=== PATIENT | female | born 1945 | race Caucasian/White ===

== ENCOUNTER 2019-07-11 09:41 | Emergency (ER) | payer MEDICARE, MEDICAID, SELFPAY ==
[2019-07-11 09:44] VITALS: BP 104/72; PULSE 78; RESP 20; TEMP 36.5; O2SAT 95; BMI 34.0
--- NOTE | 2019-07-11 09:45 | XRR_ITS ---
PROCEDURE INFORMATION: Exam: XR Left Shoulder Exam date and time: 07/11/2019 9:46 AM Age: 73 years old Clinical indication: Injury or trauma; Fall; Initial encounter; Blunt trauma (contusions or hematomas; Shoulder; Left TECHNIQUE: Imaging protocol: XR Left shoulder. Views: AP internal and external rotation views, and a scapular Y view of the left shoulder. COMPARISON: No relevant prior studies available. FINDINGS: Bones/joints: Mild inferior marginal hypertrophy of the scapular glenoid. Moderate hypertrophic changes of the acromioclavicular joint. Soft tissues: Normal. XR/XR shoulder LT min 2V* [id number] IMPRESSION: 1. No acute bony injury identified. 2. Mild primary glenohumeral joint osteoarthritis. 3. Acromioclavicular arthrosis.
--- NOTE | 2019-07-11 09:50 | W.ED.EXTPRO ---
HPI - Extremity Problem General: Chief complaint: Fall Stated complaint: LEFT SHOULDER INJURY S/P MULT FALLS Time Seen by Provider: 07/11/19 09:44 Review of Systems General: Reports: 10 or more systems reviewed and unremarkable except in HPI and below Musc: Reports: extremity pain, joint pain and limited range of motion [facility] ED PFSH: Social History Smoking and tobacco status: former smoker Course Vital Signs: Vital signs: Vital Signs Temperature 97.7 F 07/11/19 09:44 Pulse Rate 78 07/11/19 09:44 Respiratory Rate 20 H 07/11/19 09:44 Blood Pressure 104/72 07/11/19 09:44 Pulse Oximetry 95 07/11/19 09:44 MDM - Extremity (Nontraumatic) Lab Data: Labs: Lab Results 07/11/19 07/11/19 07/11/19 Range/Units 10:42 10:42 10:42 WBC 8.3 (4.0-10.0) 10^3/ uL RBC 3.97 L (4.1-5.3) 10^6/u L Hgb 12.1 (11.5-15.3) g/dL Hct 36.5 L (37.0-47.0) % MCV 91.9 (81-99) fL MCH 30.5 (28.0-34.0) pg MCHC 33.2 (30.0-36.0) g/dL RDW 13.2 (12.1-15.1) % Plt Count 187 (130-400) 10^3/c mm MPV 10.7 H (7.4-10.4) fL Neut % (Auto) 79.1 % Lymph % (Auto) 8.2 % Otero % (Auto) 11.7 % Eos % (Auto) 0.1 % Baso % (Auto) 0.2 % Neut # (Auto) 6.5 (1.8-7.7) 10^3/u L Lymph # (Auto) 0.7 L (0.8-4.8) 10^3/u L Otero # (Auto) 1.0 H (0.2-0.9) 10^3/u L Eos # (Auto) 0.0 (0.0-0.8) 10^3/u L Baso # (Auto) 0.0 (0.0-0.1) 10^3/u L Nucleated RBC % (a uto) 0 % Nucleated RBCs # 0.0 /100WBC Sodium 133 L (136-145) mmol/L Potassium 3.8 (3.5-5.1) mmol/L Chloride 92 L (98-107) mmol/L Carbon Dioxide 28 (22-29) mmol/L Anion Gap 16.8 (5-19) BUN 24 H (8-23) mg/dL Creatinine 1.2 H (0.5-0.9) mg/dL Glucose 146 H (65-115) mg/dL Calculated Osmolal ity 275 L (285-295) mOsm/k g Lactate 0.8 (0.5-2.2) mmol/L Calcium 9.5 (8.5-10.5) mg/dL Total Bilirubin 0.5 (0.15-1.2) mg/dL AST 39 H (0-32) U/L ALT 35 H (0-33) U/L Alkaline Phosphata se 84 (35-105) IU/L Total Protein 6.8 (6.6-8.7) g/dL Albumin 3.2 L (3.5-5.2) g/dL Globulin 3.6 (1.3-4.6) g/dL Urine Color (Yellow) Urine Appearance (CLEAR) Urine pH (5-7) Ur Specific Gravit y (1.005-1.030) Urine Protein (Negative) Urine Glucose (UA) (Normal) Urine Ketones (Negative) Urine Blood (Negative) Urine Nitrate (Negative) Urine Bilirubin (NEGATIVE) Urine Urobilinogen (Negative) mg/dL Ur Leukocyte Farnaz ase (Negative) Urine RBC (0-2) /hpf Urine WBC (0-5) /hpf Ur Squamous Epith Cells (0-5) Urine Bacteria (NONE) 07/11/19 Range/Units 11:28 WBC (4.0-10.0) 10^3/ uL RBC (4.1-5.3) 10^6/u L Hgb (11.5-15.3) g/dL Hct (37.0-47.0) % MCV (81-99) fL MCH (28.0-34.0) pg MCHC (30.0-36.0) g/dL RDW (12.1-15.1) % Plt Count (130-400) 10^3/c mm MPV (7.4-10.4) fL Neut % (Auto) % Lymph % (Auto) % Otero % (Auto) % Eos % (Auto) % Baso % (Auto) % Neut # (Auto) (1.8-7.7) 10^3/u L Lymph # (Auto) (0.8-4.8) 10^3/u L Otero # (Auto) (0.2-0.9) 10^3/u L Eos # (Auto) (0.0-0.8) 10^3/u L Baso # (Auto) (0.0-0.1) 10^3/u L Nucleated RBC % (a uto) % Nucleated RBCs # /100WBC Sodium (136-145) mmol/L Potassium (3.5-5.1) mmol/L Chloride (98-107) mmol/L Carbon Dioxide (22-29) mmol/L Anion Gap (5-19) BUN (8-23) mg/dL Creatinine (0.5-0.9) mg/dL Glucose (65-115) mg/dL Calculated Osmolal ity (285-295) mOsm/k g Lactate (0.5-2.2) mmol/L Calcium (8.5-10.5) mg/dL Total Bilirubin (0.15-1.2) mg/dL AST (0-32) U/L ALT (0-33) U/L Alkaline Phosphata se (35-105) IU/L Total Protein (6.6-8.7) g/dL Albumin (3.5-5.2) g/dL Globulin (1.3-4.6) g/dL Urine Color Yellow (Yellow) Urine Appearance Clear (CLEAR) Urine pH 5 (5-7) Ur Specific Gravit y 1.010 (1.005-1.030) Urine Protein 1+ H (Negative) Urine Glucose (UA) Norm (Normal) Urine Ketones 1+ H (Negative) Urine Blood 2+ H (Negative) Urine Nitrate Negative (Negative) Urine Bilirubin 1+ H (NEGATIVE) Urine Urobilinogen 1 H (Negative) mg/dL Ur Leukocyte Farnaz ase Negative (Negative) Urine RBC 5-10 H (0-2) /hpf Urine WBC 15-25 H (0-5) /hpf Ur Squamous Epith Cells Rare (0-5) Urine Bacteria 3+ H (NONE) Discharge Plan Discharge Patient Disposition: Home, Self-Care Clinical Impression: Acute UTI Fall Qualifiers: Encounter type: initial encounter Qualified Code(s): W19.XXXA - Unspecified fall, initial encounter Acute shoulder pain Qualifiers: Laterality: left Qualified Code(s): M25.512 - Pain in left shoulder Condition: Stable Prescriptions: New Bactrim DS 800-160 mg tablet 1 tab PO BID 7 Days Qty: 14 RF: 0 No Action acetaminophen 325 mg Tablet 650 mg PO TID RF: 0 verapamil 40 mg Tablet 40 mg PO BID RF: 0 loperamide 2 mg Capsule 2 mg PO QID PRN (Reason: loose stools) RF: 0 triamcinolone acetonide 0.5 % Cream 1 applic TOPICAL BID RF: 0 cetirizine 10 mg Tablet 5 mg PO BID RF: 0 tizanidine 4 mg Tablet 4 mg PO Q8H PRN (Reason: Pain) RF: 0 Zofran 8 mg Tablet 8 mg PO Q8H PRN (Reason: Nausea) RF: 0 clobetasol 0.05 % Cream 1 applic TOPICAL BID PRN (Reason: Rash) RF: 0 omeprazole 40 mg Capsule,Delayed Release(Dr/Ec) 40 mg PO DAILY RF: 0 trazodone 100 mg Tablet 100 mg PO BEDTIME RF: 0 diphenhydramine HCl 25 mg Capsule 25 mg PO BEDTIME PRN (Reason: Sleep) RF: 0 nitrofurantoin macrocrystal 100 mg Capsule 100 mg PO BID RF: 0 aspirin 81 mg Tablet,Chewable 81 mg PO DAILY RF: 0 Vitamin D2 1,250 mcg (50,000 unit) Capsule 1,250 mcg PO Q7D RF: 0 Acetaminophen PM 25-500 mg Tablet 1 tab PO BEDTIME RF: 0 Lexapro 20 mg Tablet 20 mg PO DAILY RF: 0 Cetaphil Cream 1 applic TOPICAL BID PRN (Reason: skin symptoms) RF: 0 Trulicity 1.5 mg/0.5 mL Pen Injector 1.5 mg SUBCUT Q7D RF: 0 Referrals: Leilani Willson NP [Primary Care Provider] - Coding Level of Care Code ED Electronic Pagination System Operator for Briandag Isabela
--- NOTE | 2019-07-11 10:41 | PC.NURSE ---
Patient on bedpan for urine collection.
[2019-07-11 10:48] LABS: Basophils % 0.2 %; Eosinophils % 0.1 %; Hematocrit 36.5 % (37.0-47.0); Hemoglobin 12.1 g/dL (11.5-15.3); Lymphocytes # 0.7 10^3/uL (0.8-4.8); Lymphocytes % 8.2 %; Mean Corpuscular HGB Conc 33.2 g/dL (30.0-36.0); Mean Corpuscular Hemoglobin 30.5 pg (28.0-34.0); Mean Corpuscular Volume 91.9 fL (81-99); Mean Platelet Volume 10.7 fL (7.4-10.4); Monocytes % 11.7 %; Neutrophils # 6.5 10^3/uL (1.8-7.7); Neutrophils % 79.1 %; Nucleated Red Blood Cells % 0 %; Platelet Count 187 10^3/cmm (130-400); Red Blood Count 3.97 10^6/uL (4.1-5.3); Red Cell Distribution Width 13.2 % (12.1-15.1); White Blood Count 8.3 10^3/uL (4.0-10.0)
[2019-07-11 11:02] LABS: Lactate (Lactic Acid level) 0.8 mmol/L (0.5-2.2)
[2019-07-11 11:03] LABS: Alanine Aminotransferase 35 U/L (0-33); Albumin Level 3.2 g/dL (3.5-5.2); Alkaline Phosphatase 84 IU/L (35-105); Anion Gap 16.8 (5-19); Aspartate Amino Transferase 39 U/L (0-32); Blood Urea Nitrogen 24 mg/dL (8-23); Calcium 9.5 mg/dL (8.5-10.5); Carbon Dioxide 28 mmol/L (22-29); Chloride 92 mmol/L (98-107); Creatinine Clr Calc Pharmacy 52.8862; Globulin 3.6 g/dL (1.3-4.6); Glucose 146 mg/dL (65-115); Osmolality Calculated 275 mOsm/kg (285-295); Potassium 3.8 mmol/L (3.5-5.1); Sodium 133 mmol/L (136-145); Total Bilirubin 0.5 mg/dL (0.15-1.2); Total Protein 6.8 g/dL (6.6-8.7)
--- NOTE | 2019-07-11 11:31 | PC.NURSE ---
IN AND OUT CATH DONE DRYWALL CONTRACTOR USED PT GARY PROCEDURE WELL URINE SENT TO LAB CLEAR YELLOW URINE
[2019-07-11 12:02] LABS: Add Urine Microscopic? YES; Bilirubin Urine 1+ (NEGATIVE); Blood Urine 2+ (Negative); Glucose Urine UA Norm (Normal); Ketones Urine 1+ (Negative); Leukocyte Esterase Urine Negative (Negative); Nitrate Urine Negative (Negative); Protein Urine 1+ (Negative); Urine Appearance Clear (CLEAR); Urine Color Yellow (Yellow); Urobilinogen Urine 1 mg/dL (Negative); pH Urine 5 (5-7)
[2019-07-11 12:03] LABS: Add Urine Culture? Yes; Bacteria Urine 3+; Squamous Epithelial Cell Urine RARE (0-5); WBC Urine 15-25 /hpf (0-5)
[2019-07-11] MEDS: cefTRIAXone 1,000 MG in sodium chloride 0.9% (plus) 50 ML 100 MG IV (12:06)
[2019-07-11 12:24] VITALS: BP 138/75; PULSE 70; RESP 16; O2SAT 97
== END 2019-07-11 12:25 | disposition home or self-care (01) ==
PROVIDERS: Emergency Provider Family Medicine; PCP Nurse Practitioner Family
DX: M25.512 Pain in left shoulder (principal); N39.0 Urinary tract infection, site not specified; Z79.82 Long term (current) use of aspirin; Z87.891 Personal history of nicotine dependence
CPT/HCPCS: 12345; 36415; 51701; 73030; 80053; 81001; 83605; 85025; 87077; 87086; 87186; 96365; 99281; 99283; J0696

== ENCOUNTER → 2020-08-28 15:30 | Outpatient (BNVA) | payer MEDICARE, MEDICAID, SELFPAY | PROVIDERS: PCP Nurse Practitioner Family; Visit Provider Orthopaedic Surgery | DX: M25.551 Pain in right hip (principal); M16.11 Unilateral primary osteoarthritis, right hip | CPT/HCPCS: 73502 ==

== ENCOUNTER → 2020-12-05 13:51 | Outpatient (BNVA) | payer MEDICARE, MEDICAID, SELFPAY | PROVIDERS: PCP Nurse Practitioner Family; Visit Provider Orthopaedic Surgery | DX: Z01.812 Encounter for preprocedural laboratory examination (principal); M25.569 Pain in unspecified knee; M16.11 Unilateral primary osteoarthritis, right hip; Z20.822 Contact with and (suspected) exposure to COVID-19 | CPT/HCPCS: 87635 ==

== ENCOUNTER 2020-12-11 12:48 | Inpatient (IN) | payer MEDICARE, MEDICAID, SELFPAY ==
[2020-12-05 11:38] VITALS: BMI 34.2
--- NOTE | 2020-12-05 12:16 | P.ANESASSM_ITS ---
Pre-Anesthetic Assessment Pre-Anesthetic Assessment: Height/Weight: Height 1.8 m Weight 111.13 kg Proposed Procedure: Operation Date: 12/11/20 09:30 Proposed Procedures p right Total Hip Arthroplasty 95561 M16.11(Right) - Jose Roberto Lozoya MD Was Beta Ronel taken within 24 hours: N/A Was Clonidine taken within 24 hours: N/A Social: Social History: No alcohol and No tobacco Comment: previous smoker quit years ago Exam: Pre-Anes Outpt Exam: alert, oriented x 3, clear to auscultation bilaterally and regular rate & rhythm Airway: Submandibular: WNL Cervical ROM: WNL MP: 1 History/ROS: No significant complaints Pulmonary: Pulmonary: None reported CV/HEM: CV/HEM: None reported : : None reported Metabolic: Comments: obesity w BMI 34 Musc/skel: Musc/skel: None reported Neuropsych: Neuropsych: None reported Anesthetic Plan: ASA status: 3 Anesthesia: Anesthesia Evaluation and Gen eral Risk of > 500 ml blood loss (7ml/kg in children): No PFSH Anesthesia PFSH: Social History Smoking and tobacco status: former smoker Data Anesthesia Cardiac Studies: No Data to Display
[2020-12-11] VITALS (28 sets, daily range): BP systolic 131–192; BP diastolic 55–128; PULSE 68–115; RESP 13–25; TEMP 36.3–37.2; O2SAT 89–98
[2020-12-11 08:36] LABS: Glucose Point of Care 240 mg/dL (70-110)
[2020-12-11] MEDS: sodium chloride 0.9% 1,000 ML 30 ML IV (08:42)
--- NOTE | 2020-12-11 09:12 | ANES.PAUD2 ---
Pre-Anesthetic Update Pre-Anesthetic Assessment: Date of Surgery/Procedure: 12/11/20 Proposed Procedure: Operation Date: 12/11/20 09:30 Proposed Procedures p right Total Hip Arthroplasty 72273 M16.11(Right) - Jose Roberto Lozoya MD Any changes to Pre-Anesthetic Assessment?: No Last Intake: Intake Last Liquid Date 12/10/20 Last Liquid Time 20:25 Last Solid Date 12/10/20 Last Solid Time 17:00 Labs Last 48hrs: Laboratory Results - last 48 hr 12/11/20 08:27 POC Glucose 240 H Vitals: Pulse Rate 95 12/11/20 08:12 Pulse Rhythm 12/11/20 08:15 Pulse Strength 3+ Normal 12/11/20 08:15 Respiratory Rate 15 12/11/20 08:12 Blood Pressure 136/97 12/11/20 08:12 Blood Pressure Nisreen n 110 12/11/20 08:12 Pulse Oximetry 93 12/11/20 08:12 Oxygen Delivery Me thod 12/11/20 08:15 Exam: Pre-Anes Outpt Exam: alert, oriented x 3, clear to auscultation bilaterally and regular rate & rhythm Other Pertinent Information: Other Pertinent Information: SAB to GETA Cardiac Studies: No Data to Display
[2020-12-11] MEDS: HYDROmorphone 1 mg/mL INJ 1 mL 0.5 MG IVP ×2 (09:17→12:51)
--- NOTE | 2020-12-11 09:22 | W.PM.OPSUD ---
Surgery/Procedure H&P Update DATE OF PROCEDURE: December 11, 2020 DATE H&P PERFORMED: 12/05/20 H&P UPDATE INFORMATION: I have reviewed H&P completed within last 30 days and No changes to prior documentation PLANNED PROCEDURE: Operation Date: 12/11/20 09:30 Proposed Procedures p right Total Hip Arthroplasty 80637 M16.11(Right) - Jose Roberto Lozoya MD
[2020-12-11] MEDS: tranexamic acid 1,000 mg/10mL SDV 1000 MG IRRIGATION (10:43)
--- NOTE | 2020-12-11 12:22 | XR_ITS ---
WS: [id number] XR hip RT 1V wo/w pel [id number] REASON FOR EXAM: Status post right total hip arthroplasty FINDINGS: Total right hip arthroplasty. Components of the prosthesis are in proper position and alignment. Old healed fracture of the right superior pubic ramus. Soft tissue changes adjacent to the greater trochanter compatible with recent surgery. No acute bony abnormality. XR/XR hip RT 1V wo/w pel [id number] IMPRESSION: Total right hip arthroplasty as above.
--- NOTE | 2020-12-11 12:22 | P.OP_ITS ---
Operative Report Date of procedure: December 11, 2020 Pre-op Diagnosis: Osteoarthritis right hip Post-op diagnosis: same Post-op Findings: Same Procedure Done: Right total hip arthroplasty Implants: 1) [place] 58 mm ADM acetabular shell 2) Size 8 Jadiel 132.5 degree neck angle SecureFit Max stem 3} 28 mm standard femoral head 4} Restorationa ADM X3 insert Pathology: none sent Anesthesia: General Estimated blood loss (mL): 300 Complications: None Findings: Severe osteoarthritis right hip with eburnation of the acetabulum and femoral head and large peripheral osteophytes about the femoral head Condition: stable Disposition: PACU Procedure: The patient was taken to the operating room and anesthesia provided by the anesthesia service. The patient was placed in the lateral position on a beanbag. A timeout was performed. The patient was draped in the usual fashion. A 15 cm long incision was made beginning just proximal to the greater trochanter and extending posteriorly to a point just distal to the trochanter on the posterior border of the trochanter. Dissection was carried down with electrocautery through the subcutaneous fat to the fascia kristen which was divided proximally and distally with curved scissors. The anterior two thirds of the gluteus medius and minimus were elevated off the hip with electrocautery. The capsule was divided in a H-like fashion. The hip was dislocated and a neck cut made just above the level of the lesser trochanter. Exposure of the acetabulum was facilitated with the acetabular retractors. Remnants of labrum and peripheral osteophytes were removed with electrocautery and a rongeur. A reamer 2 mm under the size the femoral head was utilized to ream medially to the base of the palm and are. Reaming was then increased in 1 mm intervals until a healthy rim a trabecular bone was encountered. A trial ADM cup was placed and its position marked with electrocautery In the acetabulum. A final was press-fit into place. Attention was then focused on the femur. Sequential reaming was done under power until cortical chatter was encountered. Broaching was then accomplished until a stable broach size was obtained. A trial reduction with the head and neck provided excellent stability. The wound was irrigated with saline and antibiotic solution. The final Jadiel SecureFit Max stem was press-fit into place. The femoral head was placed and the hip was reduced. The hip was brought through range of motion and found to be free of impingement and stable. The anterior capsule was reapproximated with 1 Ethibond. The gluteus medius and minimus were repaired through bone with 5 Ethibond and reinforced with 1 Ethibond. The fascial kristen was closed with a running 0 Stratafix suture. Deep pelvic tissues were closed with 2-0 Stratafix and the skin with a running 4-0 l Stratafix.
[2020-12-11] MEDS: fentaNYL 50 mcg/mL INJ 2mL IVP (12:29)
[2020-12-11] MEDS: sodium chloride 0.9% 1,000 ML 100 ML IV ×2 (12:57→21:35)
--- NOTE | 2020-12-11 13:40 | XR_ITS ---
WS: [id number] Pelvis, AP portable view, 12/11/2020, 1355 hours Clinical Data: Total hip arthroplasty Comparison: AP right hip, today, 1223 hours Findings: The right hip arthroplasty is in good position. The old fracture of the superior right ischial pubic ramus is noted. The left hip is unremarkable. XR/XR pelvis 1-2V* [id number] Impression: Right hip arthroplasty.
[2020-12-11] MEDS: acetaminophen 500 mg Tablet 1000 MG PO ×2 (15:02→21:35)
[2020-12-11] MEDS: morphine 4 mg/mL SDV 1 mL 2 MG IVP ×4 (15:40→21:41)
--- NOTE | 2020-12-11 15:42 | ANE.PACU2 ---
Inpatient post-anesthesia follow up: Airway intact: Yes Vital signs: Temperature 97.4 F Pulse Rate 105 Respiratory Rate 16 Blood Pressure 146/55 Pulse Oximetry 93 Oxygen Delivery Me thod Nasal Cannula Oxygen Flow Rate 3 Fraction of Inspir ed Oxygen Hydration adequate: Yes Nausea and vomiting: No Pain level: 3 Mental status: Baseline
--- NOTE | 2020-12-11 16:24 | PC.PT ---
PT eval attempted. Patient not fully awake and having a lot of pain. Will attempt in a.m.
[2020-12-11 16:51] LABS: Glucose Point of Care 301 mg/dL (70-110)
[2020-12-11] MEDS: sennosides-docusate Tablet 2 TAB PO (18:01)
[2020-12-11] MEDS: CELEcoxib 200 mg Capsule PO (18:01)
[2020-12-11] MEDS: cetirizine 10 mg Tablet 5 MG PO (18:01)
[2020-12-11] MEDS: mupirocin oint 22 gm 1 APPLIC TOPICAL (18:02)
[2020-12-11] MEDS: oxyCODONE 5 mg IR Tab/Cap PO (19:37)
[2020-12-11 21:06] LABS: Glucose Point of Care 258 mg/dL (70-110)
[2020-12-11] MEDS: trazodone 100 mg Tablet PO (21:35)
[2020-12-12] VITALS (13 sets, daily range): BP systolic 107–155; BP diastolic 66–80; PULSE 79–101; RESP 16–20; TEMP 36.4–37.6; O2SAT 92–98
[2020-12-12 02:33] LABS: Hemoglobin 11.8 g/dL (11.5-15.3)
[2020-12-12] MEDS: morphine 4 mg/mL SDV 1 mL 2 MG IVP ×2 (04:29→09:21)
[2020-12-12] MEDS: oxyCODONE 5 mg IR Tab/Cap PO ×3 (04:30→23:13)
--- NOTE | 2020-12-12 04:36 | PC.NURSE ---
This RN entered room and pt had pulled out her IV and tangled in her blankets stating help me and I'm getting out of here. My ride will be here soon . Pt reorientated that she is in the hospital with a fresh surgical incision to her right hip. Pt stating well help me sit up and attempting to put legs over the side of the bed. BUILDING MAINTENANCE REPAIRER and this RN assisted pt to recliner. Pt then stated I need to go to the restroom . Transferred to [facility]. Ana Paula and skin care performed. Linens changed. Two assist back into bed with foot pumps on. New IV started to right hand #20. Pt tolerated well. Snack, fluids, and prn pain medication administered as ordered. Pt denies any other needs at this time but stating hopefully I get out of here soon. My food is waiting. .
[2020-12-12] MEDS: acetaminophen 500 mg Tablet 1000 MG PO (05:46)
[2020-12-12] MEDS: CELEcoxib 200 mg Capsule PO ×2 (05:46→17:19)
[2020-12-12 06:48] LABS: Glucose Point of Care 301 mg/dL (70-110)
[2020-12-12] MEDS: sodium chloride 0.9% 1,000 ML 100 ML IV (07:48)
[2020-12-12] MEDS: escitalopram 10 mg Tablet 20 MG PO (07:50)
[2020-12-12] MEDS: cetirizine 10 mg Tablet 5 MG PO ×2 (07:50→17:19)
[2020-12-12] MEDS: sennosides-docusate Tablet 2 TAB PO ×2 (07:50→17:19)
[2020-12-12] MEDS: pantoprazole DR 40 mg Tablet PO (07:50)
[2020-12-12] MEDS: atorvastatin 40 mg Tablet PO (07:51)
[2020-12-12] MEDS: aspirin 81 mg Chew Tablet PO (07:51)
[2020-12-12] MEDS: mupirocin oint 22 gm 1 APPLIC TOPICAL ×2 (07:52→17:23)
--- NOTE | 2020-12-12 10:10 | PC.CHAP ---
Pastoral Care Encounter/Spiritual Assessment Type of Contact [] Declined paper tube cutter visit [] Patient/Family/Request visit [] Outpatient visit [] Follow-up visit [] Physician referral [] Code/Alert [x] Routine visit [] Staff referral [] Actively dying [] Patient sleeping [] Family support [] [] Out of room [] Palliative care [] [] Receiving care in room [] Pre-surgical visit [] Trauma [] Long length of stay [] ICU visit [] Other: Relational/Emotional Strength [x] Patient feels connected with others/family/visitors/staff [] Distress [] Loneliness/isolation [] Abandonment Spirituality of Patient [x] Person of Elaine [] Attends Mandaeism of their Elaine [x] Believes in Prayer [] Reads Bible or Church materials [] There are Spiritual issues to be addressed Station Repairer Interventions [x] Prayer [x] Active listening [x] Non-anxious presence [x] Spiritual/emotional support [] Crisis/trauma care [] Spiritual counseling [] Bereavement support [] Provided bereavement packet [] Provided Bible/devotional materials [] Provided toy/stuffed animal, coloring book to patient or family member [] Provided Communion [] Anointing/Sandwich [] Salvation [x] Completed spiritual assessment [] Other: Impact on Illness or Injury [] Angry [] Fearful [] Anxious [] Often cries [] Exhaustion [] Unable to work [] Unable to attend mormonism [] Unable to walk/stand [] Unable to read [] Unable to drive [] Unable to eat/drink [] Unable to sleep [] Unable to be with family [] Patient intubated [] Other: Summary Pt's hip hurting her and she kept trying to find a comfortable position. 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 She has limited family contact in the area but does have support if needed. Time spent with patient 10 m
[2020-12-12 12:00] LABS: Glucose Point of Care 271 mg/dL (70-110)
[2020-12-12] MEDS: acetaminophen 325 mg Tablet 650 MG PO ×2 (13:52→21:54)
[2020-12-12 17:10] LABS: Glucose Point of Care 305 mg/dL (70-110)
[2020-12-12] MEDS: trazodone 100 mg Tablet PO (21:54)
[2020-12-12 22:07] LABS: Glucose Point of Care 234 mg/dL (70-110)
--- NOTE | 2020-12-12 22:49 | P.PN_ITS ---
Subjective Subjective: Interval history: Patient seen this morning at 0800. Pain control OK. Good po intake. Komal sutherland'raheel Vitals/I&O/Wt Last Vital Signs Temp 97.5 F L 12/12/20 20:00 Pulse 81 12/12/20 20:45 Resp 16 12/12/20 20:45 BP 107/70 12/12/20 20:00 Pulse Ox 98 12/12/20 20:45 12/12/20 12/12/20 12/12/20 06:59 14:59 22:59 Intake Total 540 / 2580 2009 240 / 2250 Output Total 250 / 550 600 / 600 Balance 290 / 2030 2009 -360 / 1650 Physical Exam Narrative: EXAM NARRATIVE: Right hip dressing clean and dry. Minimal swelling right thigh Data : 12/12/20 02:03 A&P Assessment and plan (1) Status post total hip replacement, right: Doing well surgically. Poor performance with therapy Status: Acute (2) Osteoarthritis of right hip: Status: Resolved Attestations Medical Necessity Statement*: Patien with poor gait with therapy. Needs SNF placement. OK to discharge when SNF bed available Coding Level of Care Code Acute Claim Inspector for [place] Diagnoses Status post total hip replacement, right Z96.641 Osteoarthritis of right hip M16.11
[2020-12-13] VITALS (9 sets, daily range): BP systolic 96–137; BP diastolic 62–82; PULSE 84–105; RESP 16–22; TEMP 36.4–37.1; O2SAT 90–96
[2020-12-13] MEDS: CELEcoxib 200 mg Capsule PO (05:33)
[2020-12-13 06:41] LABS: Glucose Point of Care 278 mg/dL (70-110)
[2020-12-13] MEDS: escitalopram 10 mg Tablet 20 MG PO (08:12)
[2020-12-13] MEDS: pantoprazole DR 40 mg Tablet PO (08:12)
[2020-12-13] MEDS: atorvastatin 40 mg Tablet PO (08:12)
[2020-12-13] MEDS: aspirin 81 mg Chew Tablet PO (08:12)
[2020-12-13] MEDS: sennosides-docusate Tablet 2 TAB PO ×2 (08:12→17:41)
[2020-12-13] MEDS: acetaminophen 325 mg Tablet 650 MG PO ×3 (08:12→21:51)
[2020-12-13] MEDS: mupirocin oint 22 gm 1 APPLIC TOPICAL ×2 (08:16→18:12)
[2020-12-13] MEDS: cetirizine 10 mg Tablet 5 MG PO ×2 (08:16→17:41)
--- NOTE | 2020-12-13 10:03 | PC.CHAP ---
Pastoral Care Encounter/Spiritual Assessment Type of Contact [] Declined broommaker visit [] Patient/Family/Request visit [] Outpatient visit [] Follow-up visit [] Physician referral [] Code/Alert [X] Routine visit [] Staff referral [] Actively dying [] Patient sleeping [] Family support [] [] Out of room [] Palliative care [] [] Receiving care in room [] Pre-surgical visit [] Trauma [] Long length of stay [] ICU visit [] Other: Relational/Emotional Strength [X] Patient feels connected with others/family/visitors/staff [] Distress [] Loneliness/isolation [] Abandonment Spirituality of Patient [X] Person of Elaine [X] Attends Holiness of their Elaine [X] Believes in Prayer [] Reads Bible or Orthodoxy materials [] There are Spiritual issues to be addressed Veneer Trimmer Interventions [X] Prayer [X] Active listening [X] Non-anxious presence [X]X Spiritual/emotional support [] Crisis/trauma care [] Spiritual counseling [] Bereavement support [] Provided bereavement packet [] Provided Bible/devotional materials [] Provided toy/stuffed animal, coloring book to patient or family member [] Provided Communion [] Anointing/[place] [] Salvation [X] Completed spiritual assessment [] Other: Impact on Illness or Injury [] Angry [] Fearful [] Anxious [] Often cries [] Exhaustion [] Unable to work [] Unable to attend faith [] Unable to walk/stand [] Unable to read [] Unable to drive [] Unable to eat/drink [] Unable to sleep [] Unable to be with family [] Patient intubated [] Other: Summary Time spent with patient 15 MIN
[2020-12-13 11:46] LABS: Glucose Point of Care 284 mg/dL (70-110)
[2020-12-13] MEDS: oxyCODONE 5 mg IR Tab/Cap PO ×2 (14:10→21:51)
[2020-12-13 17:37] LABS: Glucose Point of Care 281 mg/dL (70-110)
--- NOTE | 2020-12-13 18:02 | PM.PN ---
Subjective Subjective: Interval history: Wants to go home. No complaints of pain, Good po intake Vitals/I&O/Wt Last Vital Signs Temp 98.3 F 12/13/20 16:00 Pulse 102 H 12/13/20 16:00 Resp 18 12/13/20 16:00 BP 137/82 12/13/20 16:00 Pulse Ox 90 12/13/20 16:00 12/13/20 12/13/20 12/13/20 06:59 14:59 22:59 Intake Total 480 / 480 Output Total 300 / 900 250 / 250 Balance -300 / 1350 480 / 480 -250 / 230 Physical Exam Narrative: EXAM NARRATIVE: Slight staining right hip dressing. Minimal swelling right thigh Data : 12/12/20 02:03 A&P Assessment and plan (1) Osteoarthritis of right hip: Status: Resolved (2) Status post total hip replacement, right: Concerns raised by therapy about patient's safety with walker. Probably will need SNF. No acute issues. Status: Acute Attestations Medical Necessity Statement*: Awaiting SNF placement Coding Level of Care Code Acute Mold Unloader for [place] Diagnoses Osteoarthritis of right hip M16.11 Status post total hip replacement, right Z96.641
[2020-12-13 20:54] LABS: Glucose Point of Care 249 mg/dL (70-110)
[2020-12-13] MEDS: trazodone 100 mg Tablet PO (21:51)
[2020-12-14] VITALS (7 sets, daily range): BP systolic 140–154; BP diastolic 71–81; PULSE 75–90; RESP 16–20; TEMP 36.7–37; O2SAT 90–98
[2020-12-14] MEDS: CELEcoxib 100 mg Capsule 200 MG PO ×2 (06:20→17:38)
[2020-12-14 07:23] LABS: Glucose Point of Care 222 mg/dL (70-110)
[2020-12-14] MEDS: aspirin 81 mg Chew Tablet PO (08:20)
[2020-12-14] MEDS: escitalopram 10 mg Tablet 20 MG PO (08:20)
[2020-12-14] MEDS: pantoprazole DR 40 mg Tablet PO (08:20)
[2020-12-14] MEDS: atorvastatin 40 mg Tablet PO (08:20)
[2020-12-14] MEDS: cetirizine 10 mg Tablet 5 MG PO ×2 (08:20→17:38)
[2020-12-14] MEDS: sennosides-docusate Tablet 2 TAB PO ×2 (08:20→17:38)
[2020-12-14] MEDS: acetaminophen 325 mg Tablet 650 MG PO ×3 (08:20→20:01)
[2020-12-14] MEDS: mupirocin oint 22 gm 1 APPLIC TOPICAL ×2 (08:22→17:40)
[2020-12-14 11:26] LABS: Glucose Point of Care 256 mg/dL (70-110)
[2020-12-14] MEDS: oxyCODONE 5 mg IR Tab/Cap PO ×2 (14:31→21:59)
[2020-12-14 17:11] LABS: Glucose Point of Care 259 mg/dL (70-110)
[2020-12-14] MEDS: insulin lispro 100 unit/1 mL SUBCUT ×2 (17:37→21:59)
[2020-12-14] MEDS: trazodone 100 mg Tablet PO (20:01)
[2020-12-14 20:33] LABS: Glucose Point of Care 212 mg/dL (70-110)
[2020-12-14] MEDS: tizanidine 4 mg Tablet PO (21:59)
[2020-12-15] VITALS: BP 137/65; PULSE 78; RESP 18; TEMP 36.5; O2SAT 94
[2020-12-15 04:00] VITALS: BP 111/69; PULSE 101; RESP 19; TEMP 36.9; O2SAT 97
[2020-12-15] MEDS: CELEcoxib 100 mg Capsule 200 MG PO (05:24)
[2020-12-15 06:33] LABS: Glucose Point of Care 246 mg/dL (70-110)
[2020-12-15 08:00] VITALS: BP 135/71; PULSE 79; RESP 18; TEMP 36.6; O2SAT 91
[2020-12-15 08:20] LABS: Glucose Point of Care 238 mg/dL (70-110)
[2020-12-15] MEDS: acetaminophen 325 mg Tablet 650 MG PO (09:39)
[2020-12-15] MEDS: aspirin 81 mg Chew Tablet PO (09:40)
[2020-12-15] MEDS: insulin lispro 100 unit/1 mL SUBCUT (09:40)
[2020-12-15] MEDS: sennosides-docusate Tablet 2 TAB PO (09:40)
[2020-12-15] MEDS: pantoprazole DR 40 mg Tablet PO (09:40)
[2020-12-15] MEDS: atorvastatin 40 mg Tablet PO (09:40)
[2020-12-15] MEDS: cetirizine 10 mg Tablet 5 MG PO (09:40)
[2020-12-15] MEDS: escitalopram 10 mg Tablet 20 MG PO (09:40)
[2020-12-15] MEDS: mupirocin oint 22 gm 1 APPLIC TOPICAL (09:44)
--- NOTE | 2020-12-15 10:36 | PC.OT ---
OT TREATMENT HELD TODAY DUE TO PATIENT SCHEDULED FOR DISCHARGE
--- NOTE | 2020-12-15 10:40 | PC.SOCIAL ---
Pg 2 IMM Explained to pt Pg 2 IMM. No questions voiced. Provided pt a copy. Initialed, dated, & timed a copy & placed in chart.
[2020-12-15 11:10] VITALS: BP 136/78; PULSE 91; RESP 18; TEMP 36.6; O2SAT 91
[2020-12-15 14:41] VITALS: BP 136/78; PULSE 91; RESP 18; TEMP 36.6; O2SAT 91
--- NOTE | 2020-12-15 19:39 | P.MISC_ITS ---
Miscellaneous Note Purpose of Documentation: Discharge documentation Note: Per Dr. Lozoya, the patient was evaluated for correction. She was accepted to [facility] and discharged there today.
--- NOTE | 2020-12-15 19:39 | PM.MISC ---
Miscellaneous Note Purpose of Documentation: Discharge documentation Note: Per Dr. Lozoya, the patient was evaluated for alf. She was accepted to [facility] and discharged there today.
--- NOTE | 2020-12-20 11:20 | PC.SOCIAL ---
discharge follow up call made, spoke with Haven, patients nurse at [facility]. she reports pt is doing well, using walker for ambulation and working with PT. patient still has some confusion. patient is taking oxycodone as prescribed with pain relief. discussed with nurse pts follow up appointment with dr. flanagan, she will pass this onto medical social worker. no questions or concerns voiced.
--- NOTE | 2020-12-24 19:42 | PM.DCS ---
Discharge Providers Date of Admission: 12/12/20 20:25 Date of Discharge: December 15, 2020 Attending Provider at Admission: Jose Roberto Lozoya MD Attending Provider at Discharge: Jose Roberto Lozoya MD Primary Care Provider: SANTOS Jasso Diagnoses at Discharge Discharge Diagnosis (1) Osteoarthritis of right hip: Status: Resolved (2) Status post total hip replacement, right: Status: Acute (3) Diabetes: Status: Acute (4) Dementia: Status: Acute Reason for Visit Reason for Visit: right total hip arthroplasty Hospital Course Hospital Course The patient tolerated surgery well. They remained hemodynamically stable. They was begun on aspirin and sequential compression dressing for DVT prophylaxis. The patient was mobilized with therapy beginning the day of surgery due to his dementia had difficulty with regaining ambulatory status. Decision was made to proceed with long-term transfer. Hospitalization was extended as we waited for a bed to become available Physical Exam Narrative: EXAM NARRATIVE: On the day of discharge the hip incision was clean. The incision was free of drainage. They had no particular swelling about the thigh or distal. No distal neurovascular deficits were noted. Discharge Data Data Completed and Pending: Completed Studies During Hospitalization Category Date Time Status XR hip RT 1V wo/[place] [id number] Routine Exams 12/11/20 12:22 Completed XR pelvis 1-2V* 7 2170 Routine Exams 12/11/20 13:40 Completed Vitals: Last Vital Signs Temp 97.9 F 12/15/20 14:41 Pulse 91 12/15/20 14:41 Resp 18 12/15/20 14:41 BP 136/78 12/15/20 14:41 Pulse Ox 91 12/15/20 14:41 Discharge Plan Discharge Patient Disposition: Xfer SNF Condition: Stable Prescriptions: New celecoxib 200 mg Capsule 200 mg PO Q12H 14 Days Qty: 28 RF: 0 Continued mupirocin 2 % ointment 1 applic topical BID Qty: 15 RF: 0 acetaminophen 325 mg Tablet 650 mg PO TID RF: 0 verapamil 40 mg Tablet 40 mg PO BID RF: 0 loperamide 2 mg Capsule 2 mg PO QID PRN (Reason: loose stools) RF: 0 triamcinolone acetonide 0.5 % Cream 1 applic TOPICAL BID RF: 0 cetirizine 10 mg Tablet 5 mg PO BID RF: 0 tizanidine 4 mg Tablet 4 mg PO Q8H PRN (Reason: Pain) RF: 0 ondansetron HCl [Zofran] 8 mg Tablet 8 mg PO Q8H PRN (Reason: Nausea) RF: 0 clobetasol 0.05 % Cream 1 applic TOPICAL BID PRN (Reason: Rash) RF: 0 omeprazole 40 mg Capsule,Delayed Release(Dr/Ec) 40 mg PO DAILY RF: 0 trazodone 100 mg Tablet 100 mg PO BEDTIME RF: 0 aspirin 81 mg Tablet,Chewable 81 mg PO DAILY RF: 0 escitalopram oxalate [Lexapro] 20 mg Tablet 20 mg PO DAILY RF: 0 Cetaphil Cream 1 applic TOPICAL BID PRN (Reason: skin symptoms) RF: 0 Trulicity 1.5 mg/0.5 mL Pen Injector 1.5 mg SUBCUT Q7D RF: 0 atorvastatin 40 mg tablet 40 mg PO DAILY RF: 0 nitroglycerin 0.4 mg Tablet, Sublingual 0.4 mg SUBLINGUAL Q5M PRN (Reason: Chest Pain) RF: 0 Vitamin D2 1,250 mcg (50,000 unit) Capsule 1,250 mcg PO DAILY RF: 0 diclofenac sodium 1 % gel 1 ea TOPICAL PRN RF: 0 Discharge Orders: Discharge Order (Routine); Ordered 12/15/20 Ordered By: Belkis Kingston Referrals: [facility] [Outside] Jose Roberto Lozoya MD [Physician] - 01/16/21 9:45 am Discharge Diet: Advance as tolerated Discharge Activity: Limit activity as instructed Patient Instructions: Opioid Safety Activity Restrictions/Additional Instructions: Okay to shower. No soaking incision in tub ApplyIce up to 20 min/hr for pain and swelling Take Celebrex twice a day for the next 15 days for pain , discontinue other anti-inflammatories Take Tylenol for mild pain Take oxycodone for breakthrough pain. Exercises per physical therapy. May weight-bear as tolerated on total hip arthroplasty Discharge Attestations Time Spent in Discharge Care*: other Quality Metrics Clinical Quality Measures During this hospital stay, did patient experience: None Coding Level of Care Code Acute g [facility] note Diagnoses Osteoarthritis of right hip M16.11 Status post total hip replacement, right Z96.641 Diabetes E11.9 Dementia F03.90
== END 2020-12-15 14:42 | disposition skilled nursing facility (03) | DRG 470 ==
LOC: MEDSURG 12:48
PROVIDERS: Admitting Provider Orthopaedic Surgery; PCP Nurse Practitioner Family; Visit Provider Orthopaedic Surgery
PROC: 0SR90JA Replacement of Right Hip Joint with Synthetic Substitute, Uncemented, Open Approach (ICD-10-PCS; CPT 27130; principal; 2020-12-11 09:10)
DX: M16.11 Unilateral primary osteoarthritis, right hip (principal); Z87.891 Personal history of nicotine dependence; E11.9 Type 2 diabetes mellitus without complications; F03.90 Unspecified dementia, unspecified severity, without behavioral disturbance, psychotic disturbance, mood disturbance, and anxiety; Z79.82 Long term (current) use of aspirin; Z79.4 Long term (current) use of insulin
CPT/HCPCS: 36415; 36416; 72170; 73501; 82962; 85018; 96372; 96374; 97161; 97167; 97530; 97535; C1776; G0378; J0360; J0690; J1100; J1170; J1580; J1815; J2270; J2405; J2704; J3010; J3490; J7030

== ENCOUNTER → 2021-02-12 11:09 | Outpatient (BNVA) | payer MEDICARE, MEDICAID, SELFPAY | PROVIDERS: PCP Nurse Practitioner Family; Visit Provider Orthopaedic Surgery | DX: Z96.641 Presence of right artificial hip joint (principal) | CPT/HCPCS: 73502 ==

== ENCOUNTER → 2021-03-16 00:01 | Outpatient (BNVA) | payer MEDICARE, MEDICAID, SELFPAY | PROVIDERS: PCP Nurse Practitioner Family; Visit Provider Orthopaedic Surgery | DX: Z01.812 Encounter for preprocedural laboratory examination (principal); Z20.822 Contact with and (suspected) exposure to COVID-19 | CPT/HCPCS: 87635 ==

== ENCOUNTER 2021-03-19 14:13 | Inpatient (IN) | payer MEDICARE, MEDICAID, SELFPAY ==
[2021-03-16 16:53] VITALS: BMI 31.6
[2021-03-19] VITALS (20 sets, daily range): BP systolic 103–169; BP diastolic 56–99; PULSE 68–97; RESP 16–20; TEMP 36.2–37.3; O2SAT 94–99
[2021-03-19 11:52] LABS: Glucose Point of Care 142 mg/dL (70-110)
--- NOTE | 2021-03-19 11:59 | P.ANESASSM_ITS ---
Pre-Anesthetic Assessment Pre-Anesthetic Assessment: Height/Weight: Height 1.75 m Weight 97.069 kg Temp Pulse Resp BP Pulse Ox 99.1 F 97 18 138/79 95 03/19/21 11:56 03/19/21 11:56 03/19/21 11:56 03/19/21 11:56 03/19/21 11:56 Preop Diagnosis: Osteoarthritis right hip Proposed Procedure: Operation Date: 03/19/21 12:30 Proposed Procedures p Hip Arthroplasty Revision [id number](Right) - Jose Roberto Lozoya MD Familial anesthetic complications: none Was Beta Ronel taken within 24 hours: N/A Was Clonidine taken within 24 hours: N/A Last intake: Intake Last Liquid Date 03/18/21 Last Liquid Time 17:00 Last Solid Date 03/18/21 Last Solid Time 17:00 Social: Social History: No alcohol and No tobacco Comment: former smoker Exam: Pre-Anes Outpt Exam: alert, oriented x 3, clear to auscultation bilaterally and regular rate & rhythm Airway: Cervical ROM: WNL MP: 2 Dentition: Full GI: GI: GERD Metabolic: Metabolic: DM and Hyperlipidemia Anesthetic Plan: ASA status: 3 Anesthesia: General Risk of > 500 ml bloo d loss (7ml/kg in children): No PFSH Anesthesia PFSH: Medical History Dementia Diabetes Social History Smoking and tobacco status: former smoker Data Anesthesia Other Labs: Laboratory Results - last 48 hr 03/19/21 11:50 POC Glucose 142 H Cardiac Studies: No Data to Display
[2021-03-19] MEDS: sodium chloride 0.9% 1,000 ML 30 ML IV (12:12)
--- NOTE | 2021-03-19 12:19 | P.HP_ITS ---
Same Day Surgery H&P Indication for Procedure/HPI DATE OF PROCEDURE: March 19, 2021 CHIEF COMPLAINT/INDICATIONFOR SURGICAL PROCEDURE: Loose right femoral component, here for revision right femur PREOP DIAGNOSIS: Loose right femoral component PLANNED PROCEDRUE: Operation Date: 03/19/21 12:30 Proposed Procedures p Hip Arthroplasty Revision [id number](Right) - Jose Roberto Lozoya MD Medications/Allergies* Home Medications Medication Instructions Recorded Confirmed Type Trulicity 1.5 mg SUBCUT Q7D 07/11/19 03/19/21 History acetaminophen 650 mg PO TID 07/11/19 03/19/21 History aspirin 81 mg PO DAILY 07/11/19 03/19/21 History cetirizine 5 mg PO BID 07/11/19 03/19/21 History escitalopram oxalate [Lexapro] 20 mg PO DAILY 07/11/19 03/19/21 History loperamide 2 mg PO QID PRN 07/11/19 03/19/21 History omeprazole 40 mg PO DAILY 07/11/19 03/19/21 History ondansetron HCl [Zofran] 8 mg PO Q8H PRN 07/11/19 03/16/21 History tizanidine 4 mg PO Q8H PRN 07/11/19 03/19/21 History trazodone 100 mg PO BEDTIME 07/11/19 03/19/21 History triamcinolone acetonide 1 applic TOPICAL BID 07/11/19 03/19/21 History verapamil 40 mg PO BID 07/11/19 03/19/21 History atorvastatin 40 mg PO DAILY 12/05/20 03/19/21 History ergocalciferol (vitamin D2) 1,250 mcg PO DAILY 12/05/20 03/19/21 History [Vitamin D2] nitroglycerin 0.4 mg SUBLINGUAL Q5M PRN 12/05/20 03/19/21 History oxycodone 5 mg PO BID 03/16/21 03/19/21 History Allergies/Adverse Reactions Allergy/AdvReac Type Severity Reaction Status Date / Time gabapentin Allergy Unknown Verified 03/16/21 16:44 ibuprofen Allergy Unknown Verified 03/16/21 16:44 Current Medications: Generic Name Dose Route Start Last Admin Trade Name Freq PRN Reason Stop Dose Admin Sodium Chloride 1,000 mls @ 30 mls/hr 03/19/21 12:00 03/19/21 12:12 Sodium Chloride 0.9% IV 03/20/21 11:59 30 mls/hr .Q24H BAIRON Administration Pertinent History/Comorbid Conditions* Medical History (Updated 12/25/20 @ 07:35 by Jose Roberto Lozoya MD) Dementia Diabetes Social History Smoking and tobacco status: former smoker Pertinent Exam Findings alert, oriented x 3, clear to auscultation bilaterally, regular rate & rhythm and operative site marked Recommendations Surgery/Procedure today Coding Level of Care Code Acute [employer] for [employer]
--- NOTE | 2021-03-19 13:43 | XR_ITS ---
WS: [id number] XR hip RT 1V wo/w pel [id number] REASON FOR EXAM: sURGICAL PROCEDURE FINDINGS: The femoral component of the previous right hip arthroplasty has been replaced. This portion of the p rosthesis is in proper position and alignment and articulating with the acetabular portion of the tot al right hip arthroplasty. XR/XR hip RT 1V wo/w pel [id number] IMPRESSION: Replacement of femoral component of previous total right hip arthroplasty.
[2021-03-19 14:11] LABS: Basophils % 0.5 %; Eosinophils # 0.1 10^3/uL (0.0-0.8); Eosinophils % 0.8 %; Hematocrit 38.3 % (37.0-47.0); Hemoglobin 12.4 g/dL (11.5-15.3); Lymphocytes # 1.2 10^3/uL (0.8-4.8); Lymphocytes % 16.5 %; Mean Corpuscular HGB Conc 32.4 g/dL (30.0-36.0); Mean Corpuscular Hemoglobin 29.1 pg (28.0-34.0); Mean Corpuscular Volume 89.9 fl (81-99); Mean Platelet Volume 10.8 fL (7.4-10.4); Monocytes # 0.5 10^3/uL (0.2-0.9); Monocytes % 6.2 %; Neutrophils # 5.56 10^3/uL (1.8-7.7); Neutrophils % 75.5 %; Nucleated Red Blood Cells % 0 %; Platelet Count 214 10^3/cmm (130-400); Red Blood Count 4.26 10^6/uL (4.1-5.3); Red Cell Distribution Width 14.3 % (12.1-15.1); White Blood Count 7.4 10^3/uL (4.0-10.0)
--- NOTE | 2021-03-19 15:19 | XR_ITS ---
WS: [id number] XR hip RT 1V wo/w pel [id number] REASON FOR EXAM: right total hip FINDINGS: Total right hip arthroplasty. (Previous total right hip prosthesis removed and replaced.) Prosthetic complements appear in proper position and alignment. No bony abnormality. XR/XR hip RT 1V wo/w pel [id number] IMPRESSION: Total right hip arthroplasty
--- NOTE | 2021-03-19 15:21 | PM.OP ---
Operative Report Date of procedure: March 19, 2021 Pre-op Diagnosis: Loose right femoral component Post-op diagnosis: same Post-op Findings: Same Procedure Done: Revision right femoral component Pathology: none sent Surgeon: Jose Roberto Lozoya Anesthesia: General Estimated blood loss (mL): 200 Complications: None Findings: The patient had a the patient had a loose right femoral stem. His acetabular component was stable and satisfactory position Condition: stable Disposition: PACU Brief History: The patient is a 69 the patient is a 75-year-old female with right hip pain after a total hip arthroplasty and femoral stem subsidence consistent with loosening. The patient was taken to the operating room for revision of the femoral stem to obtain a pain-free functional help Procedure: The patient was taken to the operative the patient was taken to the operating room and given a general anesthesia. She is prepped and draped in the lateral position with the right hip exposed. She was given 2 g of Ancef. A timeout was performed. Additional lateral incision was made over the lateral scar dissection carried down to the fascial kristen. The fascia kristen was divided in line with the sutures proximally and distally with electrocautery.the anterior two thirds of gluteus medius and anterior capsule was elevated off the greater trochanter. Scarred anterior capsule was excised. The hip could then be dislocated and the femoral head was removed with a [place]. The femoral stem was identified loose in the canal. Utilizing a rongeur and curettes fibrous tissue was removed from the shoulder of the stem and the stem completely removed. Sequential reaming was accomplished distally up to a size 10 and broaching to a size 10. The size 10 broach provided excellent proximal fill but concerns were still raised about the axial stability of the stem. Decision was made to cement. The canal was cleaned with curettage brushing and pulsatile lavage down to healthy trabecular bone. A distal cement restrictor was placed. The size 8 Jadiel Omnifit Lance stem was cemented into place. A trial reduction with a -3 mm head provided excellent stability. The final -3 mm head neck and in ADM insert were placed and the hip was reduced. The hip was brought through range of motion and found to be free of impingement and stable. The anterior capsule was reapproximated with 1 Ethibond. The gluteus medius and minimus were repaired through bone with 5 Ethibond and reinforced with 1 Ethibond. The fascial kristen was closed with a running 0 Stratafix suture. Deep pelvic tissues were closed with 2-0 Stratafix and the skin with a running 4-0 l Stratafix. 1) [place] Omnifit Lance size 8 femoral stem 2) 28 mm -3 femoral head 4} ADM liner
[2021-03-19] MEDS: fentaNYL 50 mcg/mL INJ 2mL IVP (15:26)
[2021-03-19 16:29] LABS: Glucose Point of Care 210 mg/dL (70-110)
[2021-03-19] MEDS: oxyCODONE 5 mg IR Tab/Cap PO ×2 (17:16→23:22)
[2021-03-19] MEDS: cetirizine 10 mg Tablet 5 MG PO (17:16)
[2021-03-19] MEDS: CELEcoxib 200 mg Capsule PO (17:16)
[2021-03-19] MEDS: sodium chloride 0.9% 1,000 ML 100 ML IV (17:19)
[2021-03-19] MEDS: insulin lispro 100 unit/1 mL SUBCUT ×2 (18:25→21:06)
[2021-03-19] MEDS: tizanidine 4 mg Tablet PO (20:07)
[2021-03-19] MEDS: acetaminophen 325 mg Tablet 650 MG PO (20:07)
[2021-03-19 21:05] LABS: Glucose Point of Care 180 mg/dL (70-110)
[2021-03-19 21:05] LABS: Glucose Point of Care 227 mg/dL (70-110)
[2021-03-19] MEDS: trazodone 100 mg Tablet PO (21:13)
[2021-03-20] VITALS (7 sets, daily range): BP systolic 104–134; BP diastolic 58–74; PULSE 74–82; RESP 16–18; TEMP 36.7–37; O2SAT 93–95
[2021-03-20] MEDS: morphine 4 mg/mL SDV 1 mL 2 MG IVP (01:04)
[2021-03-20] MEDS: sodium chloride 0.9% 1,000 ML 100 ML IV (03:05)
[2021-03-20] MEDS: oxyCODONE 5 mg IR Tab/Cap PO ×2 (03:05→08:45)
[2021-03-20 03:31] LABS: Hemoglobin 9.8 g/dL (11.5-15.3)
[2021-03-20] MEDS: CELEcoxib 200 mg Capsule PO (04:25)
[2021-03-20 06:23] LABS: Glucose Point of Care 114 mg/dL (70-110)
--- NOTE | 2021-03-20 07:37 | PM.PN ---
Subjective Subjective: Interval history: Patient resting comfortably. Less pain Vitals/I&O/Wt Last Vital Signs Temp 98.6 F 03/20/21 04:00 Pulse 82 03/20/21 04:00 Resp 18 03/20/21 04:00 BP 116/58 03/20/21 04:00 Pulse Ox 95 03/20/21 04:00 03/19/21 03/20/21 03/20/21 22:59 06:59 14:59 Intake Total 2140 / 2300 1036.667 / 3336.667 Output Total 875 / 875 1000 / 1875 Balance 1265 / 1425 36.667 / 1461.667 Physical Exam Narrative: EXAM NARRATIVE: Right hip incision clean and dry. Minimal swelling right thigh Urinary Catheter Management^: [place]: Cath Placed During This Visit: yes, but has since been removed by the nurse Reason for Continuing Indwelling Catheter: Decision to DC Catheter Urinary Catheter Date of Insertion: 03/19/21 Urinary Catheter Time of Insertion: 13:00 Date Urinary Catheter Removed: 03/20/21 Time Urinary Catheter Discontinued: 06:20 Data : 03/20/21 02:38 A&P Assessment and plan (1) Status post total hip replacement, right: Pain seems to be doing better. We will mobilize with therapy. Patient will need assisted care. 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
[2021-03-20] MEDS: acetaminophen 325 mg Tablet 650 MG PO (08:45)
[2021-03-20] MEDS: pantoprazole DR 40 mg Tablet PO (08:46)
[2021-03-20] MEDS: escitalopram 10 mg Tablet 20 MG PO (08:46)
[2021-03-20] MEDS: aspirin 81 mg Chew Tablet PO (08:46)
[2021-03-20] MEDS: atorvastatin 40 mg Tablet PO (08:46)
[2021-03-20] MEDS: cetirizine 10 mg Tablet 5 MG PO (08:46)
[2021-03-20] MEDS: cholecalciferol (vitamin D3) 1,000 unit Tablet 1000 UNIT PO (08:46)
--- NOTE | 2021-03-20 09:35 | PC.PHAR ---
pt is from [facility]-medications entered are from the pts medication mar
[2021-03-20 12:18] LABS: Adenovirus Not Detected (NOT DETECT); Chlamydia Pneumoniae Not Detected (NOT DETECT); Coronavirus 229E,HKU1,NL63,OC4 Not Detected (NOT DETECT); Human Metapneumovirus Not Detected (NOT DETECT); Human Rhinovirus/Enterovirus Not Detected (NOT DETECT); Influenza A Not Detected (NOT DETECT); Influenza A H1 Not Detected (NOT DETECT); Influenza A H1-2009 Not Detected (NOT DETECT); Influenza A H3 Not Detected (NOT DETECT); Influenza B Not Detected (NOT DETECT); Mycoplasma Pneumoniae Not Detected (NOT DETECT); Parainfluenza Virus Type 1 Not Detected (NOT DETECT); Parainfluenza Virus Type 2 Not Detected (NOT DETECT); Parainfluenza Virus Type 3 Not Detected (NOT DETECT); Parainfluenza Virus Type 4 Not Detected (NOT DETECT); Respiratory Syncytial Virus A Not Detected (NOT DETECT); Respiratory Syncytial Virus B Not Detected (NOT DETECT); SARS-COV-2 Not Detected (NOT DETECT)
--- NOTE | 2021-03-20 13:14 | PM.DCS ---
Discharge Providers Date of Admission: 03/19/21 14:13 Date of Discharge: March 20, 2021 Attending Provider at Admission: Jose Roberto Lozoya MD Attending Provider at Discharge: Jose Roberto Lozoya MD Primary Care Provider: SANTOS Jasso Diagnoses at Discharge Discharge Diagnosis (1) Status post total hip replacement, right: Status: Acute Reason for Visit Reason for Visit: s/p post frank right Brief History: The patient is a 75-year-old female who underwent Elective right total hip arthroplasty on 12/11/2020 with persistent right hip pain. Radiographs showed subsidence of her femoral stem consistent with loosening. She was admitted to the hospital for revision of her femoral stem Hospital Course Hospital Course The patient tolerated surgery well. They remained hemodynamically stable. They was begun on aspirin and and sequential compression dressing for DVT prophylaxis. The patient was mobilized with therapy beginning the day of surgery however due to dementia and pain her recovery was slow. As planned she was discharged to a group home facility for care. Physical Exam Narrative: EXAM NARRATIVE: On the day of discharge the hip incision was clean. The incision was free of drainage. They had no particular swelling about the thigh or distal. No distal neurovascular deficits were noted. Urinary Catheter Management^: [place]: Cath Placed During This Visit: yes, but has since been removed by the nurse Reason for Continuing Indwelling Catheter: Decision to DC Catheter Urinary Catheter Date of Insertion: 03/19/21 Urinary Catheter Time of Insertion: 13:00 Date Urinary Catheter Removed: 03/20/21 Time Urinary Catheter Discontinued: 06:20 Discharge Data Data Completed and Pending: Completed Studies During Hospitalization Category Date Time Status XR hip RT 1V wo/[place] pel [id number] Routine Exams 03/19/21 13:43 Completed XR hip RT 1V wo/w pel [id number] Routine Exams 03/19/21 15:19 Completed Labs from last 24 hours 03/20/21 03/20/21 03/20/21 10:17 06:11 02:38 WBC RBC Hgb 9.8 L Hct MCV MCH MCHC RDW Plt Count MPV Neut % (Auto) Lymph % (Auto) [place]yer % (Auto) Eos % (Auto) Baso % (Auto) Neut # (Auto) Lymph # (Auto) [place]yer # (Auto) Eos # (Auto) Baso # (Auto) Nucleated RBC % (a uto) Nucleated RBCs # POC Glucose 114 H Coronavirus 229E ( PCR) Not detected SARS-CoV-2 (PCR) Not detected 03/19/21 03/19/21 03/19/21 20:55 17:08 16:14 WBC RBC Hgb Hct MCV MCH MCHC RDW Plt Count MPV Neut % (Auto) Lymph % (Auto) [place]yer % (Auto) Eos % (Auto) Baso % (Auto) Neut # (Auto) Lymph # (Auto) Sawyer # (Auto) Eos # (Auto) Baso # (Auto) Nucleated RBC % (a uto) Nucleated RBCs # POC Glucose 180 H 227 H 210 H Coronavirus 229E ( PCR) SARS-CoV-2 (PCR) 03/19/21 13:55 WBC 7.4 RBC 4.26 Hgb 12.4 Hct 38.3 MCV 89.9 MCH 29.1 MCHC 32.4 RDW 14.3 Plt Count 214 MPV 10.8 H Neut % (Auto) 75.5 Lymph % (Auto) 16.5 Sawyer % (Auto) 6.2 Eos % (Auto) 0.8 Baso % (Auto) 0.5 Neut # (Auto) 5.56 Lymph # (Auto) 1.2 Sawyer # (Auto) 0.5 Eos # (Auto) 0.1 Baso # (Auto) 0.0 Nucleated RBC % (a uto) 0 Nucleated RBCs # 0.0 POC Glucose Coronavirus 229E ( PCR) SARS-CoV-2 (PCR) Vitals: Last Vital Signs Temp 98.0 F 03/20/21 11:40 Pulse 82 03/20/21 11:40 Resp 18 03/20/21 11:40 BP 120/74 03/20/21 11:40 Pulse Ox 94 03/20/21 11:40 Discharge Plan Discharge Patient Disposition: Xfer SNF Condition: Stable Prescriptions: Continued acetaminophen 325 mg Tablet 650 mg PO TID RF: 0 verapamil 40 mg Tablet 40 mg PO BID RF: 0 loperamide 2 mg Capsule 2 mg PO QID PRN (Reason: loose stools) RF: 0 cetirizine 10 mg Tablet 5 mg PO BID RF: 0 tizanidine 4 mg Tablet 4 mg PO Q8H PRN (Reason: Muscle Pain) RF: 0 omeprazole 40 mg Capsule,Delayed Release(Dr/Ec) 40 mg PO DAILY@07 RF: 0 trazodone 100 mg Tablet 100 mg PO BEDTIME@19 RF: 0 aspirin 81 mg Tablet,Chewable 81 mg PO DAILY@07 RF: 0 escitalopram oxalate [Lexapro] 20 mg Tablet 20 mg PO DAILY@07 RF: 0 Trulicity 1.5 mg/0.5 mL Pen Injector 1.5 mg SUBCUT Q7D RF: 0 atorvastatin 40 mg tablet 40 mg PO DAILY@07 RF: 0 nitroglycerin 0.4 mg Tablet, Sublingual 0.4 mg SUBLINGUAL Q5M PRN (Reason: Chest Pain) RF: 0 oxycodone 5 mg tablet 5 mg PO BID RF: 0 Zofran 4 mg Tablet 8 mg PO Q8H PRN (Reason: Nausea And Vomiting) RF: 0 ergocalciferol (vitamin D2) 1,250 mcg (50,000 unit) Capsule 50,000 unit PO Q7D RF: 0 oxycodone 5 mg Tablet 5 mg PO Q4H PRN (Reason: Pain) RF: 0 diclofenac sodium 1 % Gel See Rx Instructions .ROUTE .COMPLEX RF: 0 Discharge Orders: Discharge Order (Routine); Ordered 03/20/21 Ordered By: Jose Roberto Lozoya Referrals: Jose Roberto Lozoya MD [Physician] - 1 month Discharge Diet: Advance as tolerated Discharge Activity: Limit activity as instructed Activity Restrictions/Additional Instructions: Leave waterproof dressing in place. Okay to shower. No soaking incision in tub Apply FirstIce up to 20 min/hr for pain and swelling Take oxycodone as before for breakthrough pain. Exercises per physical therapy. May weight-bear as tolerated on total hip arthroplasty Discharge Attestations Time Spent in Discharge Care*: other Quality Metrics Clinical Quality Measures During this hospital stay, did patient experience: None Coding Level of Care Code Acute [facility] DC note Diagnoses Status post total hip replacement, right Z96.641
[2021-03-21 12:30] LABS: Glucose Point of Care 116 mg/dL (70-110)
== END 2021-03-20 15:00 | disposition skilled nursing facility (03) | DRG 468 ==
PROVIDERS: Admitting Provider Orthopaedic Surgery; PCP Nurse Practitioner Family; Visit Provider Orthopaedic Surgery
PROC: 0SR90J9 Replacement of Right Hip Joint with Synthetic Substitute, Cemented, Open Approach (ICD-10-PCS; principal; 2021-03-19 12:10)
DX: T84.030A Mechanical loosening of internal right hip prosthetic joint, initial encounter (principal); M25.551 Pain in right hip; F03.90 Unspecified dementia, unspecified severity, without behavioral disturbance, psychotic disturbance, mood disturbance, and anxiety; E11.9 Type 2 diabetes mellitus without complications; Z87.891 Personal history of nicotine dependence; Y79.2 Prosthetic and other implants, materials and accessory orthopedic devices associated with adverse incidents; Z96.641 Presence of right artificial hip joint; E78.5 Hyperlipidemia, unspecified
CPT/HCPCS: 36415; 36416; 51702; 73501; 82962; 85018; 85025; 87635; 96372; 97162; 97166; 97530; C1713; C1776; J0690; J1100; J1170; J1580; J1815; J2270; J2405; J2704; J2710; J3010; J3490; J7030; P9041

== ENCOUNTER → 2021-05-01 08:18 | Outpatient (BNVA) | payer MEDICARE, MEDICAID, SELFPAY | PROVIDERS: PCP Nurse Practitioner Family; Visit Provider Orthopaedic Surgery | DX: Z96.641 Presence of right artificial hip joint (principal); Z98.890 Other specified postprocedural states | CPT/HCPCS: 73502 ==

== ENCOUNTER → 2021-07-31 08:37 | Outpatient (BNVA) | payer MEDICARE, MEDICAID, SELFPAY | PROVIDERS: PCP Nurse Practitioner Family; Visit Provider Orthopaedic Surgery | DX: Z96.641 Presence of right artificial hip joint (principal) | CPT/HCPCS: 73502; 99212; 99213 ==